=== PATIENT | female | born 1985 | race Caucasian/White ===

== ENCOUNTER 2017-06-27 16:03 | Emergency (ER) | payer OTHER ==
[~2017-06-27] VITALS: Ht 162.6 cm; Wt 56.7 kg
--- NOTE | 2017-06-27 16:03 | NUR ---
[id number] C/O DIZZINES WITH NEAR SYNCOPAL EPISODE. BS 127 IN FIELD, HYPOTENSIVE 100/50 IN FIELD. 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 C/O SHINGLES ON BACK
[2017-06-27] MEDS ORDERED: DIATR MEGLU/DIATRIZOATE SODIUM 30 ML BOTTLE (GASTROGRAPHIN) ONE (16:49)
[2017-06-27 17:27] LABS: APPEARANCE,URINE Clear (CLEAR); BILIRUBIN,URINE Negative (NEGATIVE); BLOOD, URINE Negative Ery/uL (NEGATIVE); COLOR,URINE Yellow (YELLOW); KETONES,URINE Trace (NEGATIVE); LEUKOCYTE ESTERASE ,URINE Negative (NEGATIVE); NITRITE, URINE Negative (NEGATIVE); PH,URINE 8.5 (5.0-8.0); PROTEIN,URINE Negative (NEGATIVE); UGLUCOSE Negative (NEGATIVE); UROBILINOGEN,URINE 0.2 EU/dL (0.2)
[2017-06-27 17:38] LABS: BACTERIA,URINE Few /HPF (None Seen); RBC,URINE 0-2 /HPF (0-2); WBC,URINE 0-2 /HPF (0-3)
[2017-06-27 17:39] LABS: SQUAMOUS EPITHELIAL CELL,UR Moderate /HPF (None Seen)
[2017-06-27] MEDS ORDERED: FLUCONAZOLE (100 MG) 100 MG TABLET PO ONE (18:30)
[2017-06-27] MEDS ORDERED: FLUCONAZOLE (100 MG) 100 MG TABLET ONE (18:37)
--- NOTE | 2017-06-27 18:44 | NUR ---
Patient discharged to home in stable condition. Written and verbal after care instructions given. Patient verbalizes understanding of instruction.
[2017-06-27 18:45] VITALS: BP 110/62
== END 2017-06-27 18:45 | disposition home or self-care (01) ==
LOC: ER 16:05
DX: R55 Syncope and collapse (principal); N76.0 Acute vaginitis; Z87.440 Personal history of urinary (tract) infections
CPT/HCPCS: 81000-TC; 84703-TC; 87210-TC; 87491; 87591; A4606; Q9963; Z7610